=== PATIENT | female | born 1985 | race Caucasian/White ===

== ENCOUNTER 2018-02-07 20:47 | Emergency (ER) | payer SELFPAY ==
[~2018-02-07] VITALS: Ht 160 cm; Wt 70.0 kg
[2018-02-07 21:09] VITALS: BP 133/68; PULSE 74; RESP 20; TEMP 99.3; O2SAT 100
--- NOTE | 2018-02-07 23:29 | PD ---
HPI Chief Complaint: Bite or Sting Time Seen by Provider: 23:28 Travel History International Travel<30 days: No Contact w/Intl Traveler<30days: No Traveled to known affect area: No History of Present Illness HPI 32-year-old female came to the emergency room with history of alleged spider bite on her left forearm yesterday when she was helping her boyfriend clean some stuff from the shed. Patient says that initially it stung a little bit and the boyfriend claims that he did see a brown recluse spider. Today the pain got more severe and a bruise has started to appear. Vital signs are relatively stable. Patient says the pain is intense and is causing some tingling down her hand. The pain is worse upon touching the area. Patient does not have history of MRSA. She is otherwise a healthy person. [facility] Past Medical History Narrative Medical List of her past medical, surgical, social and family history is reviewed from the nursing note. Medical History: Denies Significant Hx ?: Not LMP: 02/03/18 Past Surgical History Cholecystectomy: Yes Social History Alcohol Use: No Tobacco Use: No Substance Use: No Allergies-Medications (Allergen,Severity, Reaction): Coded Allergies: No Known Allergies (Verified Allergy, Unknown, 02/07/18) Comments No known drug allergies. Reported Meds & Prescriptions Reported Meds & Active Scripts Active Ortho Tri-Cyclen (Norgestimate-Ethinyl Estradiol) 0.18/0.215/0.25 mg-35 Mcg Tab 1 Tab PO DAILY Ibuprofen 600 Mg Tab 600 Mg PO Q6H PRN Narrative Medication Awaiting for the nurse to do the med reconciliation. Review of Systems Except as stated in HPI: all other systems reviewed are Neg Musculoskeletal: Positive: Pain Physical Exam Narrative GENERAL: Awake, alert, anxious, moderate to SKIN: Focused skin assessment warm/dry. Left forearm volar aspect has an irregular brownish discoloration of the skin that measures 7 cm x 5 cm in its largest diameter. The edges are well circumscribed and not much erythema or warmth. No punctum malcolm noticed. No open skin noticed. HEAD: Atraumatic. Normocephalic. EYES: Pupils equal and round. No scleral icterus. No injection or drainage. ENT: No nasal bleeding or discharge. Mucous membranes pink and moist. NECK: Trachea midline. No JVD. CARDIOVASCULAR: Regular rate and rhythm. No murmur appreciated. RESPIRATORY: No accessory muscle use. Clear to auscultation. Breath sounds equal bilaterally. GASTROINTESTINAL: Abdomen soft, non-tender, nondistended. Hepatic and splenic margins not palpable. MUSCULOSKELETAL: No obvious deformities. No clubbing. No cyanosis. No edema. NEUROLOGICAL: Awake and alert. No obvious cranial nerve deficits. Motor grossly within normal limits. Normal speech. PSYCHIATRIC: Appropriate mood and affect; insight and judgment normal. Data Data Last Documented VS Orders Orders Forearm (2vws) (02/07/18 ) Ketorolac Inj (Toradol Inj) (02/07/18 23:45) Ed Discharge Order (02/08/18 00:24) [facility] Medical Decision Making Medical Screen Exam Complete: Yes Emergency Medical Condition: Yes Medical Record Reviewed: Yes Differential Diagnosis Bruise, possible spider bite Narrative Course 11:56 PM it is not known for the [facility] to have brown recluse spiders. And in worse case scenario even if his brown recluse spider there is no antivenom available. I have ordered an x-ray of the forearm to see if there is any gas in the soft tissue and patient is getting pain medication. She will be discharged home with pain medication and asked to return in 24-48 hours for wound recheck. 12:28 AM patient has also asked me for a prescription for control pills. She is not a smoker. Procedures EKG Prior to Arrival: No Diagnosis Primary Impression: Possible spider bite versus bruising Additional Impression: Left forearm pain Additional Instructions: Take the medication as per the prescription direction. Return to the emergency room in 24-48 hours for wound recheck. Med/Other Pt SpecificInfo: Prescription(s) given Scripts Norgestimate-Ethinyl Estradiol (Ortho Tri-Cyclen) 0.18/0.215/0.25 mg-35 Mcg Tab 1 TAB PO DAILY for Control, #1 PACK 0 Refills Prov: Franklyn Brand MD 02/08/18 Ibuprofen (Ibuprofen) 600 Mg Tab 600 MG PO Q6H Y for Pain/Inflammation, #40 TAB 0 Refills Prov: Franklyn Brand MD 02/08/18 Disposition: 01 DISCHARGE HOME Condition: Stable Franklyn Brand MD Feb 07, 2018 23:29
[2018-02-07] MEDS ORDERED: KETOROLAC TROMETHAMINE 60 MG/2 ML (IM) VIAL IM ONE (23:45)
--- NOTE | 2018-02-08 00:18 | RADRPT ---
EXAM DATE: 02/07/2018 11:49 PM EDT AGE/SEX: 32 years / Female INDICATIONS: Pain due to possible spider bite. CLINICAL DATA: This is the patient's initial encounter. Patient reports that signs and symptoms have been present for 4 - 6 days and indicates a pain score of 8/10. MEDICAL/SURGICAL HISTORY: None. None. COMPARISON: No prior exams available for comparison. FINDINGS: Bony structures are intact and in normal alignment. Osseous density is normal. Soft tissues are unre markable. No radiopaque foreign bodies seen. CONCLUSION: Unremarkable exam. Electronically signed by: Brandon Kay MD 02/08/2018 12:17 AM EDT
[2018-02-08] MEDS ORDERED: IBUP-232 PO (00:23)
[2018-02-08] MEDS ORDERED: ORTHTAB4 PO (00:28)
== END 2018-02-08 00:53 | disposition home or self-care (01) ==
LOC: NEPD 20:47
DX: M79.632 Pain in left forearm (principal)
CPT/HCPCS: 73090; 96372; 99283; J1885